=== PATIENT | male | born 1960 | race Caucasian/White ===

== ENCOUNTER 2018-04-10 22:17 | Inpatient (IN) | payer MEDICARE, MEDICAID ==
--- NOTE | 2018-04-10 23:48 | ED Physician Chart ---
ED Chief Complaint/HPI - Patient Information Date Seen:: 04/10/18 Time Seen:: 22:00 Chief Complaint:: psychosis History of Present Illness:: 58 yr old male from skilled nursing for geropsych evualuation Allergies:: Allergies Allergy/AdvReac Type Severity Reaction Status Date / Time No Known Allergies Allergy Verified 04/10/18 23:15 Vitals:: Vital Signs - 8 hr 04/10/18 23:15 Temp 98.1 F HR 58 RR 18 BP 109/60 O2 Sat % 98 Historian:: Medical Records ED Review of Systems - Review of Systems General/Constitutional: No fever, No chills, No weight loss, No weakness, No diaphoresis, No edema, No loss of appetite Skin: No skin lesions, No rash, No bruising Head: No headache, No light-headedness Eyes: No loss of vision, No pain, No diplopia ENT: No earache, No nasal drainage, No sore throat, No tinnitus Neck: No neck pain, No swelling, No thyromegaly, No stiffness, No mass noted Cardio Vascular: No chest pain, No palpitations, No PND, No orthopnea, No edema Pulmonary: No SOB, No cough, No sputum, No wheezing GI: No nausea, No vomiting, No diarrhea, No pain, No melena, No hematochezia, No constipation, No hematemesis G/U: No dysuria, No frequency, No hematuria Musculoskeletal: No bone or joint pain, No back pain, No muscle pain Endocrine: No polyuria, No polydipsia Psychiatric: No prior psych history, No depression, No anxiety, No suicidal ideation Hematopoietic: No bruising, No lymphadenopathy Allergic/Immuno: No urticaria, No angioedema Neurological: No syncope, No focal symptoms, No weakness, No paresthesia, No headache, No seizure, No dizziness, No confusion, No vertigo ED Past Medical History - Past Medical History Past Medical History: Other (psych disorder) Family Medical History - Family Member Mother History Unknown: Yes ED Physical Exam - Physical Examination General/Constitutional: Awake, Well-developed, well-nourished, Alert, No distress, GCS 15, Non-toxic appearing, Ambulatory Head: Atraumatic Eyes: Lids, conjuctiva normal, PERRL, EOMI Skin: Nl inspection, No rash, No skin lesions, No ecchymosis, Well hydrated, No lymphadenopathy ENMT: External ears, nose nl, Nasal exam nl, Lips, teeth, gums nl Neck: Nontender, Full ROM w/o pain, No JVD, No nuchal rigidity, No bruit, No mass, No stridor Respiratory: Nl effort/Exclusion, Clear to Auscultation, No Wheeze/Rhonchi/Rales Cardio Vascular: RRR, No murmur, gallop, rubs, NL S1 S2 GI: No tenderness/rebounding/guarding, No organomegaly, No hernia, Normal BS's, Nondistended, No mass/bruits, No McBurney tenderness : No CVA tenderness Extremities: No tenderness or effusion, Full ROM, normal strength in all extremities, No edema, Normal digits & nails Neuro/Psych: Alert/oriented, DTR's symmetric, Normal sensory exam, Normal motor strength, Judgement/insight normal, Mood normal, Normal gait, No focal deficits Misc: Normal back, No paraspinal tenderness ED Assessment - Assessment General Assessment: psychosis for eval ED Septic Shock - . Is Septic Shock (SBP<90, OR Lactate>4 mmol\L) present?: No - <6hrs of presentation: Vital Signs: Vital Signs - 8 hr 04/10/18 23:15 Temp 98.1 F HR 58 RR 18 BP 109/60 O2 Sat % 98 ED Reassessment (Disposition) - Reassessment Reassessment Condition:: Unchanged - Diagnosis Diagnosis:: psychosis - Patient Disposition Discharge/Transfer:: Acute Care w/in this hosp
[2018-04-11 00:02] LABS: URINE MICROSCOPIC INDICATED? YES; URINE SOURCE CLEAN C
[2018-04-11 00:07] LABS: % EOSINOPHILS 1.9 % (0.0-5.0); % LYMPHOCYTES 42.9 % (20.0-50.0); % MONOCYTES 10.8 % (2.0-10.0); % NEUTROPHILS 43.4 % (40.0-80.0); BASOPHILE ABSOLUTE 0.1 Th/cumm (0-0.2); EOSINOPHILE ABSOLUTE 0.1 Th/cmm (0.1-0.4); HEMOGLOBIN 11.4 gm/dL (12-16); LYMPHOCYTE ABSOLUTE 2.8 Th/cmm (1.5-3.0); MEAN CELL VOLUME 89.4 fl (80-99); MEAN CORPUSCULAR HEMOGLOBIN 29.9 pg (26.0-30.0); MEAN CORPUSCULAR HGB CONC 33.5 pg (28.0-36.0); MONOCYTE ABSOLUTE 0.7 Th/cmm (0.3-1.0); NEUTROPHILE ABSOLUTE 2.8 Th/cmm (1.8-8.0); PLATELET COUNT 371 Th/cmm (150-400); RED CELL DISTRIBUTION WIDTH 14.7 % (11.5-20.0); WHITE BLOOD COUNT 6.5 Th/cmm (4.8-10.8)
[2018-04-11 00:19] LABS: URINE BILIRUBIN NEGATIVE (NEGATIVE); URINE BLOOD TRACE (NEGATIVE); URINE GLUCOSE (UA) NEGATIVE (NEGATIVE); URINE KETONE NEGATIVE (NEGATIVE); URINE LEUKOCYTE ESTERASE NEGATIVE (NEGATIVE); URINE NITRATE NEGATIVE (NEGATIVE); URINE PROTEIN NEGATIVE (NEGATIVE); URINE UROBILINOGEN 0.2 E.U./dL (0.2 - 1.0)
[2018-04-11 00:20] LABS: URINE CLARITY CLEAR (CLEAR)
[2018-04-11 00:21] LABS: URINE BACTERIA OCCASIONAL /hpf (NONE SEEN); URINE COLOR OTHER; URINE EPITHELIAL CELLS OCCASIONAL /lpf (FEW); URINE RBC 0-2 /hpf (0-5); URINE WBC 0-2 /hpf (0-5)
[2018-04-11 00:43] LABS: ALB/GLOB RATIO 1.6 (1.0-1.8); ALBUMIN 3.8 gm/dL (4.2-5.5); ALKALINE PHOSPHATASE 72 U/L (34-104); ANION GAP 8.9 (7.0-16.0); BILIRUBIN,TOTAL 0.2 mg/dL (0.3-1.0); BUN - UREA NITROGEN 11 mg/dL (7-25); CALCIUM SERUM 9.2 mg/dL (8.6-10.3); CARBON DIOXIDE 26.6 mEq/L (21.0-31.0); CHLORIDE 100 mEq/L (98-107); CREATININE - SERUM 0.8 mg/dL (0.7-1.3); GFR AFRICAN-AMERICAN > 60.0 ml/min (>90); GFR NON AFRICAN-AMERICAN > 60.0 ml/min; GLUCOSE 94 mg/dL (70-105); POTASSIUM SERUM 3.5 mEq/L (3.5-5.1); SGOT 14 U/L (13-39); SGPT/ALT 11 U/L (7-52); SODIUM SERUM 132 mEq/L (136-145); TOTAL PROTEIN,SERUM 6.2 gm/dL (6.0-8.3)
[2018-04-11 02:11] VITALS: BP 95/51
[2018-04-11] MEDS ORDERED: Magnesium Hydroxide (MOM) 30 mL UDC PO PRN ×2 (02:14→21:38)
[2018-04-11] MEDS ORDERED: Maalox 30 mL Cup PO PRN ×2 (02:14→21:38)
[2018-04-11] MEDS ORDERED: GALANTAMINE HBR 8 MG PO SCH (09:00)
[2018-04-11] MEDS ORDERED: FLUPHENAZINE HCL 5 MG PO SCH (09:00)
[2018-04-11] MEDS: Multivitamin Tab PO SCH (09:26)
[2018-04-11] MEDS ORDERED: Non-Formulary Item 1 EA (Melatonin [Melatonin] 3 MG) PO SCH (21:00)
--- NOTE | 2018-04-11 23:39 | History & Physical ---
ADMIT DATE: 04/11/2018 HISTORY OF PRESENT ILLNESS: The patient is a 58-year-old male with long history of psychosis, admitted to [facility] under Dr. Fischer's service for evaluation and treatment. The patient denies any chest pain, shortness of breath, nausea, vomiting, fever or chills. PAST MEDICAL HISTORY: Significant for psychosis. PAST SURGICAL HISTORY: No recent surgery. ALLERGIES: None. MEDICATIONS: Follow admission reconciliation. SOCIAL HISTORY: No smoking, alcohol or drugs. FAMILY HISTORY: Noncontributory. REVIEW OF SYSTEMS: RENAL SYSTEM: No history of chronic renal disorder. CARDIOVASCULAR SYSTEM: No coronary artery disease. ENDOCRINE SYSTEM: No diabetes or thyroid problem. GASTROINTESTINAL SYSTEM: No upper or lower gastrointestinal bleed. NEUROLOGICAL SYSTEM: No seizure disorder. MUSCULOSKELETAL SYSTEM: No muscular dystrophy. HEMATOLOGICAL SYSTEM: No bleeding tendency. RESPIRATORY SYSTEM: No asthma. GENITOURINARY: No hematuria. PHYSICAL EXAMINATION: GENERAL: He is awake, alert, mildly confused. VITAL SIGNS: Temperature 98.1, heart rate 67, blood pressure 129/73. HEENT: Normocephalic. Pupils reacting equal to light and accommodation. Sclerae clear. NECK: Supple. Negative for lymphadenopathy, JVD or bruit. CHEST: Bilaterally normal. No rhonchi or wheezing. HEART: S1, S2 normal. No murmur or gallop rhythm. ABDOMEN: Soft, bowel sounds positive. EXTREMITIES: No edema. NEUROLOGIC: He is awake, alert, mildly confused. LABORATORY DATA: White blood cells 6.5, hemoglobin 11.4, hematocrit 34.0, platelet 371. Sodium 132, potassium 3.5, BUN 11, creatinine 0.8. ASSESSMENT: 1. Anemia. 2. Hyponatremia. 3. Constipation. 4. Psychosis. PLAN: The patient admitted to the hospital under Dr. Fischer's service. Medical problem to address during hospitalization is psychosis. Medical problem to address at discharge is mild anemia. The patient is medically stable for activity. Thank you Dr. Fischer for asking me to see your patient. JOB# [id number]
[2018-04-12] MEDS: Multivitamin Tab PO SCH (08:41)
--- NOTE | 2018-04-12 12:19 | Psychosocial Evaluation ---
DATE OF SERVICE: 04/11/2018 JUSTIFICATION FOR HOSPITALIZATION: The patient is currently in the hospital, states that he has been having thoughts of "passing away." CHIEF COMPLAINT: "I have been having thoughts of passing away." HISTORY OF PRESENT ILLNESS: A -[id number] male attesting to depression, thoughts of "passing away," apparently coming in from [place], more agitation and hallucinating, talking to himself, not making any sense. On exam, he is pretty disoriented, does not know why he is here other than the above-mentioned. Okay sleep. Okay appetite. Later during the interview telling me "I am not depressed, I feel fine, I want to go home." He is pretty confused on exam, poor historian. PAST PSYCHIATRIC ADMISSION: He states he has been to [facility] before. FAMILY HISTORY: Denies. SOCIAL HISTORY: States he was born in [place], not , no kids. Denies any drugs. No alcohol or tobacco. States he lives in an apartment alone, but in fact lives at [facility]. MEDICATIONS: Noted. MEDICAL HISTORY: Please see full H and P. MENTAL STATUS EXAMINATION: Stated age. Fair eye contact. Rambling speech. Mildly pressured speech. Psychomotorically accelerated. Restless. Mood "fine." Affect flat. Thought processes are disorganized. No overt SI or HI at this time, but he is alluding to thoughts of "passing away." The patient appearing psychotic, mumbling to self. Insight and judgment diminished. He does not know where he is or what is going on. PROVISIONAL DIAGNOSIS: Likely schizophrenia. Medical: Please see full H and P. ESTIMATED LENGTH OF STAY: 5-7 days. ASSESSMENT: The patient requiring hospitalization, bizarre behaviors, aggressive behaviors, psychotic behaviors. PLAN: Continue fluphenazine with plans to titrate. TREATMENT PLAN: Includes group as well as milieu therapy. CONDITIONS FOR DISCHARGE: Improved mood, improved affect, cessation of any SI, better coping, better control of his psychotic symptoms. JOB# [id number]
--- NOTE | 2018-04-12 20:31 | Internal Medicine Prog Note ---
Internal Medicine Subjective - Subjective Service Date: 04/12/18 Patient seen and examined:: with staff Patient is:: awake, verbal, confused Per staff patient has:: no adverse event Internal Medicine Objective - Results Result Diagrams: 04/10/18 23:55 04/10/18 23:55 Recent Labs: Laboratory Last Values WBC 6.5 Th/cmm (4.8-10.8) 04/10/18 23:55 RBC 3.80 Mil/cmm (4.30-5.70) L 04/10/18 23:55 Hgb 11.4 gm/dL (12-16) L 04/10/18 23:55 Hct 34.0 % (41.0-60) L 04/10/18 23:55 MCV 89.4 fl (80-99) 04/10/18 23:55 MCH 29.9 pg (26.0-30.0) 04/10/18 23:55 MCHC Differential 33.5 pg (28.0-36.0) 04/10/18 23:55 RDW 14.7 % (11.5-20.0) 04/10/18 23:55 Plt Count 371 Th/cmm (150-400) 04/10/18 23:55 MPV 6.0 fl 04/10/18 23:55 Neutrophils % 43.4 % (40.0-80.0) 04/10/18 23:55 Lymphocytes % 42.9 % (20.0-50.0) 04/10/18 23:55 Monocytes % 10.8 % (2.0-10.0) H 04/10/18 23:55 Eosinophils % 1.9 % (0.0-5.0) 04/10/18 23:55 Basophils % 1.0 % (0.0-2.0) 04/10/18 23:55 Sodium 132 mEq/L (136-145) L 04/10/18 23:55 Potassium 3.5 mEq/L (3.5-5.1) 04/10/18 23:55 Chloride 100 mEq/L (98-107) 04/10/18 23:55 Carbon Dioxide 26.6 mEq/L (21.0-31.0) 04/10/18 23:55 Anion Gap 8.9 (7.0-16.0) 04/10/18 23:55 BUN 11 mg/dL (7-25) 04/10/18 23:55 Creatinine 0.8 mg/dL (0.7-1.3) 07 23:55 Est GFR ( Amer) > 60.0 ml/min (>90) 04/10/18 23:55 Est GFR (Non-Af Amer) > 60.0 ml/min 04/10/18 23:55 BUN/Creatinine Ratio 13.8 04/10/18 23:55 Glucose 94 mg/dL (70-105) 04/10/18 23:55 Calcium 9.2 mg/dL (8.6-10.3) 04/10/18 23:55 Total Bilirubin 0.2 mg/dL (0.3-1.0) L 04/10/18 23:55 AST 14 U/L (13-39) 04/10/18 23:55 ALT 11 U/L (7-52) 04/10/18 23:55 Alkaline Phosphatase 72 U/L (34-104) 04/10/18 23:55 Total Protein 6.2 gm/dL (6.0-8.3) 04/10/18 23:55 Albumin 3.8 gm/dL (4.2-5.5) L 04/10/18 23:55 Globulin 2.4 gm/dL 04/10/18 23:55 Albumin/Globulin Ratio 1.6 (1.0-1.8) 04/10/18 23:55 Urine Source CLEAN C 04/10/18 23:45 Urine Color OTHER 04/10/18 23:45 Urine Clarity CLEAR (CLEAR) 04/10/18 23:45 Urine pH 7.0 (4.6 - 8.0) 04/10/18 23:45 Ur Specific [place] <= 1.005 (1.005-1.030) 04/10/18 23:45 Urine Protein NEGATIVE mg/dL (NEGATIVE) 04/10/18 23:45 Urine Glucose (UA) NEGATIVE mg/dL (NEGATIVE) 04/10/18 23:45 Urine Ketones NEGATIVE mg/dL (NEGATIVE) 04/10/18 23:45 Urine Blood TRACE (NEGATIVE) 04/10/18 23:45 Urine Nitrate NEGATIVE (NEGATIVE) 04/10/18 23:45 Urine Bilirubin NEGATIVE (NEGATIVE) 04/10/18 23:45 Urine Urobilinogen 0.2 E.U./dL (0.2 - 1.0) 04/10/18 23:45 Ur Leukocyte Esterase NEGATIVE (NEGATIVE) 04/10/18 23:45 Urine RBC 0-2 /hpf (0-5) H 04/10/18 23:45 Urine WBC 0-2 /hpf (0-5) 04/10/18 23:45 Ur Epithelial Cells OCCASIONAL /lpf (FEW) 04/10/18 23:45 Urine Bacteria OCCASIONAL /hpf (NONE SEEN) 04/10/18 23:45 - Physical Exam Vitals and I&O: Vital Signs Temp 98.6 F 04/12/18 15:45 Pulse 84 04/12/18 15:45 Resp 17 04/12/18 15:45 BP 126/68 04/12/18 15:45 Pulse Ox 98 04/12/18 15:45 Intake & Output 04/12/18 04/12/18 04/13/18 06:59 18:59 06:59 Intake Total 120 Balance 120 Intake: Oral 120 Other: # Voids 3 # Bowel Movements 0 Active Medications: Current Medications Acetaminophen (Tylenol) 650 mg PO Q4HR PRN PRN Reason: Mild Pain / Temp above 100 Stop: 06/10/18 02:13 Al Hydrox/Mg Hydrox/Simethicone (Maalox) 30 ml PO Q4HR PRN PRN Reason: GI DISTRESS Stop: 06/10/18 02:13 Fluphenazine HCl (Prolixin) 5 mg PO Q12HR [facility] Stop: 06/10/18 08:59 Last Admin: 04/12/18 08:41 Dose: 5 mg Galantamine Hydrobromide (Razadyne) 8 mg PO Q12HR [facility] Stop: 06/10/18 08:59 Last Admin: 04/12/18 08:41 Dose: 8 mg Lorazepam (Ativan) 0.5 mg PO Q4HR PRN; Protocol PRN Reason: Anxiety/agitation Stop: 05/11/18 02:13 Magnesium Hydroxide (Milk Of Magnesia) 30 ml PO Q8HR PRN PRN Reason: Constipation Stop: 06/10/18 21:37 Multivitamins/Vitamin C (Theragran) 1 tab PO DAILY [facility] Stop: 06/10/18 08:59 Last Admin: 04/12/18 08:41 Dose: 1 tab Sodium Chloride (Nacl Tab) 1 gm PO BID [facility] Stop: 06/10/18 08:59 Last Admin: 04/12/18 16:07 Dose: 1 gm Zolpidem Tartrate (Ambien) 5 mg PO HS PRN PRN Reason: Insomnia Stop: 06/10/18 02:13 Last Admin: 04/11/18 20:19 Dose: 5 mg General: alert HEENT: NC/AT, PERRLA, EOMI, anicteric sclerae, throat clear Neck: Supple, No JVD, No thyromegaly, +2 carotid pulse wo bruit Cardiovascular: RRR, Normal S1, Normal S2, without murmur Abdomen: soft, non-tender, non-distended Extremities: clear Neurological: no change Internal Medicine Assmt/Plan - Assessment Assessment: 1.ANEMIA. 2.HYPONATREMIA. 3.CONSTIPATION. 4.PSYCHOSIS - Plan Plan: CONTINUE ON CURRERNT MEDICATION AND DIET.
[2018-04-13] MEDS: Multivitamin Tab PO SCH (09:26)
--- NOTE | 2018-04-13 17:40 | Progress Notes ---
DATE: 04/12/2018 SUBJECTIVE: Chart reviewed and the patient interviewed. Also discussed the patient's condition with the staff and reviewed records and labs. The patient is easily agitated and restless. The patient is pacing up and down the unit in angry and in irritable mood and have difficulty following directions. The patient also is rambling. The patient is interrupting me during my interview and during asking questions and kept going back and forth and restless. ASSESSMENT: The patient is still psychotic and agitated. TREATMENT PLAN: Continue to monitor his behavior and his condition closely. Also, continue to work on his irritability and his agitation and continue to follow up. JOB# [id number]
--- NOTE | 2018-04-13 23:17 | Internal Medicine Prog Note ---
Internal Medicine Subjective - Subjective Service Date: 04/13/18 Patient seen and examined:: with staff Patient is:: awake, verbal, confused Per staff patient has:: no adverse event Internal Medicine Objective - Results Result Diagrams: 04/10/18 23:55 04/10/18 23:55 Recent Labs: Laboratory Last Values WBC 6.5 Th/cmm (4.8-10.8) 04/10/18 23:55 RBC 3.80 Mil/cmm (4.30-5.70) L 04/10/18 23:55 Hgb 11.4 gm/dL (12-16) L 04/10/18 23:55 Hct 34.0 % (41.0-60) L 04/10/18 23:55 MCV 89.4 fl (80-99) 04/10/18 23:55 MCH 29.9 pg (26.0-30.0) 04/10/18 23:55 MCHC Differential 33.5 pg (28.0-36.0) 04/10/18 23:55 RDW 14.7 % (11.5-20.0) 04/10/18 23:55 Plt Count 371 Th/cmm (150-400) 04/10/18 23:55 MPV 6.0 fl 04/10/18 23:55 Neutrophils % 43.4 % (40.0-80.0) 04/10/18 23:55 Lymphocytes % 42.9 % (20.0-50.0) 04/10/18 23:55 Monocytes % 10.8 % (2.0-10.0) H 04/10/18 23:55 Eosinophils % 1.9 % (0.0-5.0) 04/10/18 23:55 Basophils % 1.0 % (0.0-2.0) 04/10/18 23:55 Sodium 132 mEq/L (136-145) L 04/10/18 23:55 Potassium 3.5 mEq/L (3.5-5.1) 04/10/18 23:55 Chloride 100 mEq/L (98-107) 04/10/18 23:55 Carbon Dioxide 26.6 mEq/L (21.0-31.0) 04/10/18 23:55 Anion Gap 8.9 (7.0-16.0) 04/10/18 23:55 BUN 11 mg/dL (7-25) 04/10/18 23:55 Creatinine 0.8 mg/dL (0.7-1.3) 07 23:55 Est GFR ( Amer) > 60.0 ml/min (>90) 04/10/18 23:55 Est GFR (Non-Af Amer) > 60.0 ml/min 04/10/18 23:55 BUN/Creatinine Ratio 13.8 04/10/18 23:55 Glucose 94 mg/dL (70-105) 04/10/18 23:55 Calcium 9.2 mg/dL (8.6-10.3) 04/10/18 23:55 Total Bilirubin 0.2 mg/dL (0.3-1.0) L 04/10/18 23:55 AST 14 U/L (13-39) 04/10/18 23:55 ALT 11 U/L (7-52) 04/10/18 23:55 Alkaline Phosphatase 72 U/L (34-104) 04/10/18 23:55 Total Protein 6.2 gm/dL (6.0-8.3) 04/10/18 23:55 Albumin 3.8 gm/dL (4.2-5.5) L 04/10/18 23:55 Globulin 2.4 gm/dL 04/10/18 23:55 Albumin/Globulin Ratio 1.6 (1.0-1.8) 04/10/18 23:55 Urine Source CLEAN C 04/10/18 23:45 Urine Color OTHER 04/10/18 23:45 Urine Clarity CLEAR (CLEAR) 04/10/18 23:45 Urine pH 7.0 (4.6 - 8.0) 04/10/18 23:45 Ur Specific [place] <= 1.005 (1.005-1.030) 04/10/18 23:45 Urine Protein NEGATIVE mg/dL (NEGATIVE) 04/10/18 23:45 Urine Glucose (UA) NEGATIVE mg/dL (NEGATIVE) 04/10/18 23:45 Urine Ketones NEGATIVE mg/dL (NEGATIVE) 04/10/18 23:45 Urine Blood TRACE (NEGATIVE) 04/10/18 23:45 Urine Nitrate NEGATIVE (NEGATIVE) 04/10/18 23:45 Urine Bilirubin NEGATIVE (NEGATIVE) 04/10/18 23:45 Urine Urobilinogen 0.2 E.U./dL (0.2 - 1.0) 04/10/18 23:45 Ur Leukocyte Esterase NEGATIVE (NEGATIVE) 04/10/18 23:45 Urine RBC 0-2 /hpf (0-5) H 04/10/18 23:45 Urine WBC 0-2 /hpf (0-5) 04/10/18 23:45 Ur Epithelial Cells OCCASIONAL /lpf (FEW) 04/10/18 23:45 Urine Bacteria OCCASIONAL /hpf (NONE SEEN) 04/10/18 23:45 - Physical Exam Vitals and I&O: Vital Signs Temp 96.9 F 04/13/18 21:34 Pulse 71 04/13/18 21:34 Resp 20 04/13/18 21:34 BP 100/61 04/13/18 21:34 Pulse Ox 99 04/13/18 21:34 Intake & Output 04/13/18 04/13/18 04/14/18 06:59 18:59 06:59 Intake Total 500 500 Balance 500 500 Intake: Oral 500 500 Other: # Voids 3 3 # Bowel Movements 0 0 Active Medications: Current Medications Acetaminophen (Tylenol) 650 mg PO Q4HR PRN PRN Reason: Mild Pain / Temp above 100 Stop: 06/10/18 02:13 Al Hydrox/Mg Hydrox/Simethicone (Maalox) 30 ml PO Q4HR PRN PRN Reason: GI DISTRESS Stop: 06/10/18 02:13 Fluphenazine HCl (Prolixin) 5 mg PO Q12HR [facility] Stop: 06/10/18 08:59 Last Admin: 04/13/18 20:54 Dose: 5 mg Galantamine Hydrobromide (Razadyne) 8 mg PO Q12HR [facility] Stop: 06/10/18 08:59 Last Admin: 04/13/18 20:05 Dose: 8 mg Lorazepam (Ativan) 0.5 mg PO Q4HR PRN; Protocol PRN Reason: Anxiety/agitation Stop: 05/11/18 02:13 Magnesium Hydroxide (Milk Of Magnesia) 30 ml PO Q8HR PRN PRN Reason: Constipation Stop: 06/10/18 21:37 Multivitamins/Vitamin C (Theragran) 1 tab PO DAILY [facility] Stop: 06/10/18 08:59 Last Admin: 04/13/18 09:26 Dose: 1 tab Sodium Chloride (Nacl Tab) 1 gm PO BID [facility] Stop: 06/10/18 08:59 Last Admin: 04/13/18 16:55 Dose: 1 gm Zolpidem Tartrate (Ambien) 5 mg PO HS PRN PRN Reason: Insomnia Stop: 06/10/18 02:13 Last Admin: 04/13/18 20:54 Dose: 5 mg General: alert HEENT: NC/AT, PERRLA, EOMI, anicteric sclerae, throat clear Neck: Supple, No JVD, No thyromegaly, +2 carotid pulse wo bruit Cardiovascular: RRR, Normal S1, Normal S2, without murmur Abdomen: soft, non-tender, non-distended Extremities: clear Neurological: no change Internal Medicine Assmt/Plan - Assessment Assessment: 1.ANEMIA. 2.HYPONATREMIA. 3.CONSTIPATION. 4.PSYCHOSIS - Plan Plan: CONTINUE ON CURRERNT MEDICATION AND DIET.
--- NOTE | 2018-04-14 01:42 | Progress Notes ---
DATE: 04/13/2018 SUBJECTIVE: Chart reviewed and the patient interviewed. Also, discussed the patient's condition with the staff and reviewed records and labs. The patient is still isolative and withdrawn. The patient also is still guarded. Also, still wants to be left alone. The patient is compliant with taking his medications with no side effects of medications. ASSESSMENT: The patient is still depressed and is still withdrawn. TREATMENT PLAN: Continue to monitor his behavior and his condition closely. Also, continue to work on his ineffective coping and continue to follow up. JOB# [id number]
[2018-04-14] MEDS: Multivitamin Tab PO SCH (08:44)
--- NOTE | 2018-04-14 19:08 | Internal Medicine Prog Note ---
Internal Medicine Subjective - Subjective Service Date: 04/14/18 Patient seen and examined:: with staff Patient is:: awake, verbal, confused Per staff patient has:: no adverse event Internal Medicine Objective - Results Result Diagrams: 04/10/18 23:55 04/10/18 23:55 Recent Labs: Laboratory Last Values WBC 6.5 Th/cmm (4.8-10.8) 04/10/18 23:55 RBC 3.80 Mil/cmm (4.30-5.70) L 04/10/18 23:55 Hgb 11.4 gm/dL (12-16) L 04/10/18 23:55 Hct 34.0 % (41.0-60) L 04/10/18 23:55 MCV 89.4 fl (80-99) 04/10/18 23:55 MCH 29.9 pg (26.0-30.0) 04/10/18 23:55 MCHC Differential 33.5 pg (28.0-36.0) 04/10/18 23:55 RDW 14.7 % (11.5-20.0) 04/10/18 23:55 Plt Count 371 Th/cmm (150-400) 04/10/18 23:55 MPV 6.0 fl 04/10/18 23:55 Neutrophils % 43.4 % (40.0-80.0) 04/10/18 23:55 Lymphocytes % 42.9 % (20.0-50.0) 04/10/18 23:55 Monocytes % 10.8 % (2.0-10.0) H 04/10/18 23:55 Eosinophils % 1.9 % (0.0-5.0) 04/10/18 23:55 Basophils % 1.0 % (0.0-2.0) 04/10/18 23:55 Sodium 132 mEq/L (136-145) L 04/10/18 23:55 Potassium 3.5 mEq/L (3.5-5.1) 04/10/18 23:55 Chloride 100 mEq/L (98-107) 04/10/18 23:55 Carbon Dioxide 26.6 mEq/L (21.0-31.0) 04/10/18 23:55 Anion Gap 8.9 (7.0-16.0) 04/10/18 23:55 BUN 11 mg/dL (7-25) 04/10/18 23:55 Creatinine 0.8 mg/dL (0.7-1.3) 07 23:55 Est GFR ( Amer) > 60.0 ml/min (>90) 04/10/18 23:55 Est GFR (Non-Af Amer) > 60.0 ml/min 04/10/18 23:55 BUN/Creatinine Ratio 13.8 04/10/18 23:55 Glucose 94 mg/dL (70-105) 04/10/18 23:55 Calcium 9.2 mg/dL (8.6-10.3) 04/10/18 23:55 Total Bilirubin 0.2 mg/dL (0.3-1.0) L 04/10/18 23:55 AST 14 U/L (13-39) 04/10/18 23:55 ALT 11 U/L (7-52) 04/10/18 23:55 Alkaline Phosphatase 72 U/L (34-104) 04/10/18 23:55 Total Protein 6.2 gm/dL (6.0-8.3) 04/10/18 23:55 Albumin 3.8 gm/dL (4.2-5.5) L 04/10/18 23:55 Globulin 2.4 gm/dL 04/10/18 23:55 Albumin/Globulin Ratio 1.6 (1.0-1.8) 04/10/18 23:55 Urine Source CLEAN C 04/10/18 23:45 Urine Color OTHER 04/10/18 23:45 Urine Clarity CLEAR (CLEAR) 04/10/18 23:45 Urine pH 7.0 (4.6 - 8.0) 04/10/18 23:45 Ur Specific [place] <= 1.005 (1.005-1.030) 04/10/18 23:45 Urine Protein NEGATIVE mg/dL (NEGATIVE) 04/10/18 23:45 Urine Glucose (UA) NEGATIVE mg/dL (NEGATIVE) 04/10/18 23:45 Urine Ketones NEGATIVE mg/dL (NEGATIVE) 04/10/18 23:45 Urine Blood TRACE (NEGATIVE) 04/10/18 23:45 Urine Nitrate NEGATIVE (NEGATIVE) 04/10/18 23:45 Urine Bilirubin NEGATIVE (NEGATIVE) 04/10/18 23:45 Urine Urobilinogen 0.2 E.U./dL (0.2 - 1.0) 04/10/18 23:45 Ur Leukocyte Esterase NEGATIVE (NEGATIVE) 04/10/18 23:45 Urine RBC 0-2 /hpf (0-5) H 04/10/18 23:45 Urine WBC 0-2 /hpf (0-5) 04/10/18 23:45 Ur Epithelial Cells OCCASIONAL /lpf (FEW) 04/10/18 23:45 Urine Bacteria OCCASIONAL /hpf (NONE SEEN) 04/10/18 23:45 - Physical Exam Vitals and I&O: Vital Signs Temp 97.6 F 04/14/18 14:00 Pulse 77 04/14/18 14:00 Resp 20 04/14/18 14:00 BP 103/60 04/14/18 14:00 Pulse Ox 100 04/14/18 14:00 Intake & Output 04/14/18 04/14/18 04/15/18 06:59 18:59 06:59 Intake Total 500 Balance 500 Intake: Oral 500 Other: # Voids 3 # Bowel Movements 0 Active Medications: Current Medications Acetaminophen (Tylenol) 650 mg PO Q4HR PRN PRN Reason: Mild Pain / Temp above 100 Stop: 06/10/18 02:13 Al Hydrox/Mg Hydrox/Simethicone (Maalox) 30 ml PO Q4HR PRN PRN Reason: GI DISTRESS Stop: 06/10/18 02:13 Fluphenazine HCl (Prolixin) 5 mg PO Q12HR [facility] Stop: 06/10/18 08:59 Last Admin: 04/14/18 08:44 Dose: 5 mg Galantamine Hydrobromide (Razadyne) 8 mg PO Q12HR [facility] Stop: 06/10/18 08:59 Last Admin: 04/14/18 08:44 Dose: 8 mg Lorazepam (Ativan) 0.5 mg PO Q4HR PRN; Protocol PRN Reason: Anxiety/agitation Stop: 05/11/18 02:13 Magnesium Hydroxide (Milk Of Magnesia) 30 ml PO Q8HR PRN PRN Reason: Constipation Stop: 06/10/18 21:37 Multivitamins/Vitamin C (Theragran) 1 tab PO DAILY [facility] Stop: 06/10/18 08:59 Last Admin: 04/14/18 08:44 Dose: 1 tab Sodium Chloride (Nacl Tab) 1 gm PO BID [facility] Stop: 06/10/18 08:59 Last Admin: 04/14/18 17:14 Dose: 1 gm Zolpidem Tartrate (Ambien) 5 mg PO HS PRN PRN Reason: Insomnia Stop: 06/10/18 02:13 Last Admin: 04/13/18 20:54 Dose: 5 mg General: alert HEENT: NC/AT, PERRLA, EOMI, anicteric sclerae, throat clear Neck: Supple, No JVD, No thyromegaly, +2 carotid pulse wo bruit Cardiovascular: RRR, Normal S1, Normal S2, without murmur Abdomen: soft, non-tender, non-distended Extremities: clear Neurological: no change Internal Medicine Assmt/Plan - Assessment Assessment: 1.ANEMIA. 2.HYPONATREMIA. 3.CONSTIPATION. 4.PSYCHOSIS - Plan Plan: CONTINUE ON CURRERNT MEDICATION AND DIET.
[2018-04-15] MEDS: Multivitamin Tab PO SCH (09:39)
--- NOTE | 2018-04-15 11:41 | Progress Notes ---
DATE: SUBJECTIVE: Chart reviewed and the patient interviewed. Also discussed the patient's condition with the staff and reviewed records and labs. The patient is still depressed and is still withdrawn. The patient also is still guarded, and he does not want to talk about himself or his feelings. The patient also wants to be left alone. Otherwise, the patient is cooperative and compliant with taking his medications with no side effect of medications. ASSESSMENT: The patient is still depressed. TREATMENT PLAN: Continue monitoring his behavior and his condition closely. Also, continue adjusting psychotropic medications and followup. JOB# [id number]
--- NOTE | 2018-04-15 20:18 | Progress Notes ---
DATE: 04/15/2018 SUBJECTIVE: Chart reviewed and the patient interviewed. Also discussed the patient's condition with the staff and reviewed the records and labs. The patient is still isolated and withdrawn at times and other times pacing up and down. The patient is guarded and he is not talking much about himself or his feelings. He also is interacting minimally. The patient also is suspicious and he is slightly paranoid. Otherwise, the patient is more compliant with taking his medications with no side effects of medications. ASSESSMENT: He is still agitated and has unpredictable behavior. TREATMENT PLAN: Continue to work on his impulsivity and his being guarded. Also, continue adjusting psychotropic medications and followup. JOB# [id number]
--- NOTE | 2018-04-15 20:33 | Internal Medicine Prog Note ---
Internal Medicine Subjective - Subjective Service Date: 04/15/18 Patient seen and examined:: with staff Patient is:: awake, verbal, confused Per staff patient has:: no adverse event Internal Medicine Objective - Results Result Diagrams: 04/10/18 23:55 04/10/18 23:55 Recent Labs: Laboratory Last Values WBC 6.5 Th/cmm (4.8-10.8) 04/10/18 23:55 RBC 3.80 Mil/cmm (4.30-5.70) L 04/10/18 23:55 Hgb 11.4 gm/dL (12-16) L 04/10/18 23:55 Hct 34.0 % (41.0-60) L 04/10/18 23:55 MCV 89.4 fl (80-99) 04/10/18 23:55 MCH 29.9 pg (26.0-30.0) 04/10/18 23:55 MCHC Differential 33.5 pg (28.0-36.0) 04/10/18 23:55 RDW 14.7 % (11.5-20.0) 04/10/18 23:55 Plt Count 371 Th/cmm (150-400) 04/10/18 23:55 MPV 6.0 fl 04/10/18 23:55 Neutrophils % 43.4 % (40.0-80.0) 04/10/18 23:55 Lymphocytes % 42.9 % (20.0-50.0) 04/10/18 23:55 Monocytes % 10.8 % (2.0-10.0) H 04/10/18 23:55 Eosinophils % 1.9 % (0.0-5.0) 04/10/18 23:55 Basophils % 1.0 % (0.0-2.0) 04/10/18 23:55 Sodium 132 mEq/L (136-145) L 04/10/18 23:55 Potassium 3.5 mEq/L (3.5-5.1) 04/10/18 23:55 Chloride 100 mEq/L (98-107) 04/10/18 23:55 Carbon Dioxide 26.6 mEq/L (21.0-31.0) 04/10/18 23:55 Anion Gap 8.9 (7.0-16.0) 04/10/18 23:55 BUN 11 mg/dL (7-25) 04/10/18 23:55 Creatinine 0.8 mg/dL (0.7-1.3) 07 23:55 Est GFR ( Amer) > 60.0 ml/min (>90) 04/10/18 23:55 Est GFR (Non-Af Amer) > 60.0 ml/min 04/10/18 23:55 BUN/Creatinine Ratio 13.8 04/10/18 23:55 Glucose 94 mg/dL (70-105) 04/10/18 23:55 Calcium 9.2 mg/dL (8.6-10.3) 04/10/18 23:55 Total Bilirubin 0.2 mg/dL (0.3-1.0) L 04/10/18 23:55 AST 14 U/L (13-39) 04/10/18 23:55 ALT 11 U/L (7-52) 04/10/18 23:55 Alkaline Phosphatase 72 U/L (34-104) 04/10/18 23:55 Total Protein 6.2 gm/dL (6.0-8.3) 04/10/18 23:55 Albumin 3.8 gm/dL (4.2-5.5) L 04/10/18 23:55 Globulin 2.4 gm/dL 04/10/18 23:55 Albumin/Globulin Ratio 1.6 (1.0-1.8) 04/10/18 23:55 Urine Source CLEAN C 04/10/18 23:45 Urine Color OTHER 04/10/18 23:45 Urine Clarity CLEAR (CLEAR) 04/10/18 23:45 Urine pH 7.0 (4.6 - 8.0) 04/10/18 23:45 Ur Specific [place] <= 1.005 (1.005-1.030) 04/10/18 23:45 Urine Protein NEGATIVE mg/dL (NEGATIVE) 04/10/18 23:45 Urine Glucose (UA) NEGATIVE mg/dL (NEGATIVE) 04/10/18 23:45 Urine Ketones NEGATIVE mg/dL (NEGATIVE) 04/10/18 23:45 Urine Blood TRACE (NEGATIVE) 04/10/18 23:45 Urine Nitrate NEGATIVE (NEGATIVE) 04/10/18 23:45 Urine Bilirubin NEGATIVE (NEGATIVE) 04/10/18 23:45 Urine Urobilinogen 0.2 E.U./dL (0.2 - 1.0) 04/10/18 23:45 Ur Leukocyte Esterase NEGATIVE (NEGATIVE) 04/10/18 23:45 Urine RBC 0-2 /hpf (0-5) H 04/10/18 23:45 Urine WBC 0-2 /hpf (0-5) 04/10/18 23:45 Ur Epithelial Cells OCCASIONAL /lpf (FEW) 04/10/18 23:45 Urine Bacteria OCCASIONAL /hpf (NONE SEEN) 04/10/18 23:45 - Physical Exam Vitals and I&O: Vital Signs Temp 98 F 04/15/18 20:25 Pulse 69 04/15/18 20:25 Resp 18 04/15/18 20:25 BP 121/67 04/15/18 20:25 Pulse Ox 95 04/15/18 20:25 Intake & Output 04/15/18 04/15/18 04/16/18 06:59 18:59 06:59 Intake Total 1400 240 Balance 1400 240 Intake: Oral 1400 240 Other: # Voids 4 2 Active Medications: Current Medications Acetaminophen (Tylenol) 650 mg PO Q4HR PRN PRN Reason: Mild Pain / Temp above 100 Stop: 06/10/18 02:13 Al Hydrox/Mg Hydrox/Simethicone (Maalox) 30 ml PO Q4HR PRN PRN Reason: GI DISTRESS Stop: 06/10/18 02:13 Fluphenazine HCl (Prolixin) 5 mg PO Q12HR [facility] Stop: 06/10/18 08:59 Last Admin: 04/15/18 09:39 Dose: 5 mg Galantamine Hydrobromide (Razadyne) 8 mg PO Q12HR [facility] Stop: 06/10/18 08:59 Last Admin: 04/15/18 09:39 Dose: 8 mg Lorazepam (Ativan) 0.5 mg PO Q4HR PRN; Protocol PRN Reason: Anxiety/agitation Stop: 05/11/18 02:13 Magnesium Hydroxide (Milk Of Magnesia) 30 ml PO Q8HR PRN PRN Reason: Constipation Stop: 06/10/18 21:37 Multivitamins/Vitamin C (Theragran) 1 tab PO DAILY [facility] Stop: 06/10/18 08:59 Last Admin: 04/15/18 09:39 Dose: 1 tab Sodium Chloride (Nacl Tab) 1 gm PO BID [facility] Stop: 06/10/18 08:59 Last Admin: 04/15/18 17:48 Dose: 1 gm Zolpidem Tartrate (Ambien) 5 mg PO HS PRN PRN Reason: Insomnia Stop: 06/10/18 02:13 Last Admin: 04/14/18 21:46 Dose: 5 mg General: alert HEENT: NC/AT, PERRLA, EOMI, anicteric sclerae, throat clear Neck: Supple, No JVD, No thyromegaly, +2 carotid pulse wo bruit Cardiovascular: RRR, Normal S1, Normal S2, without murmur Abdomen: soft, non-tender, non-distended Extremities: clear Neurological: no change Internal Medicine Assmt/Plan - Assessment Assessment: 1.ANEMIA. 2.HYPONATREMIA. 3.CONSTIPATION. 4.PSYCHOSIS - Plan Plan: CONTINUE ON CURRENT MEDICATION AND DIET.
[2018-04-16] MEDS: Multivitamin Tab PO SCH (08:50)
--- NOTE | 2018-04-16 17:10 | Internal Medicine Prog Note ---
Internal Medicine Subjective - Subjective Service Date: 04/16/18 Patient seen and examined:: without staff Patient is:: awake, verbal, confused Per staff patient has:: no adverse event Internal Medicine Objective - Results Result Diagrams: 04/10/18 23:55 04/10/18 23:55 Recent Labs: Laboratory Last Values WBC 6.5 Th/cmm (4.8-10.8) 04/10/18 23:55 RBC 3.80 Mil/cmm (4.30-5.70) L 04/10/18 23:55 Hgb 11.4 gm/dL (12-16) L 04/10/18 23:55 Hct 34.0 % (41.0-60) L 04/10/18 23:55 MCV 89.4 fl (80-99) 04/10/18 23:55 MCH 29.9 pg (26.0-30.0) 04/10/18 23:55 MCHC Differential 33.5 pg (28.0-36.0) 04/10/18 23:55 RDW 14.7 % (11.5-20.0) 04/10/18 23:55 Plt Count 371 Th/cmm (150-400) 04/10/18 23:55 MPV 6.0 fl 04/10/18 23:55 Neutrophils % 43.4 % (40.0-80.0) 04/10/18 23:55 Lymphocytes % 42.9 % (20.0-50.0) 04/10/18 23:55 Monocytes % 10.8 % (2.0-10.0) H 04/10/18 23:55 Eosinophils % 1.9 % (0.0-5.0) 04/10/18 23:55 Basophils % 1.0 % (0.0-2.0) 04/10/18 23:55 Sodium 132 mEq/L (136-145) L 04/10/18 23:55 Potassium 3.5 mEq/L (3.5-5.1) 04/10/18 23:55 Chloride 100 mEq/L (98-107) 04/10/18 23:55 Carbon Dioxide 26.6 mEq/L (21.0-31.0) 04/10/18 23:55 Anion Gap 8.9 (7.0-16.0) 04/10/18 23:55 BUN 11 mg/dL (7-25) 04/10/18 23:55 Creatinine 0.8 mg/dL (0.7-1.3) 07 23:55 Est GFR ( Amer) > 60.0 ml/min (>90) 04/10/18 23:55 Est GFR (Non-Af Amer) > 60.0 ml/min 04/10/18 23:55 BUN/Creatinine Ratio 13.8 04/10/18 23:55 Glucose 94 mg/dL (70-105) 04/10/18 23:55 Calcium 9.2 mg/dL (8.6-10.3) 04/10/18 23:55 Total Bilirubin 0.2 mg/dL (0.3-1.0) L 04/10/18 23:55 AST 14 U/L (13-39) 04/10/18 23:55 ALT 11 U/L (7-52) 04/10/18 23:55 Alkaline Phosphatase 72 U/L (34-104) 04/10/18 23:55 Total Protein 6.2 gm/dL (6.0-8.3) 04/10/18 23:55 Albumin 3.8 gm/dL (4.2-5.5) L 04/10/18 23:55 Globulin 2.4 gm/dL 04/10/18 23:55 Albumin/Globulin Ratio 1.6 (1.0-1.8) 04/10/18 23:55 Urine Source CLEAN C 04/10/18 23:45 Urine Color OTHER 04/10/18 23:45 Urine Clarity CLEAR (CLEAR) 04/10/18 23:45 Urine pH 7.0 (4.6 - 8.0) 04/10/18 23:45 Ur Specific [place] <= 1.005 (1.005-1.030) 04/10/18 23:45 Urine Protein NEGATIVE mg/dL (NEGATIVE) 04/10/18 23:45 Urine Glucose (UA) NEGATIVE mg/dL (NEGATIVE) 04/10/18 23:45 Urine Ketones NEGATIVE mg/dL (NEGATIVE) 04/10/18 23:45 Urine Blood TRACE (NEGATIVE) 04/10/18 23:45 Urine Nitrate NEGATIVE (NEGATIVE) 04/10/18 23:45 Urine Bilirubin NEGATIVE (NEGATIVE) 04/10/18 23:45 Urine Urobilinogen 0.2 E.U./dL (0.2 - 1.0) 04/10/18 23:45 Ur Leukocyte Esterase NEGATIVE (NEGATIVE) 04/10/18 23:45 Urine RBC 0-2 /hpf (0-5) H 04/10/18 23:45 Urine WBC 0-2 /hpf (0-5) 04/10/18 23:45 Ur Epithelial Cells OCCASIONAL /lpf (FEW) 04/10/18 23:45 Urine Bacteria OCCASIONAL /hpf (NONE SEEN) 04/10/18 23:45 - Physical Exam Vitals and I&O: Vital Signs Temp 97.6 F 04/16/18 14:00 Pulse 79 04/16/18 14:00 Resp 18 04/16/18 14:00 BP 90/59 04/16/18 14:00 Pulse Ox 98 04/16/18 14:00 Intake & Output 04/15/18 04/16/18 04/16/18 18:59 06:59 18:59 Intake Total 1400 480 Balance 1400 480 Intake: Oral 1400 480 Other: # Voids 4 2 Active Medications: Current Medications Acetaminophen (Tylenol) 650 mg PO Q4HR PRN PRN Reason: Mild Pain / Temp above 100 Stop: 06/10/18 02:13 Al Hydrox/Mg Hydrox/Simethicone (Maalox) 30 ml PO Q4HR PRN PRN Reason: GI DISTRESS Stop: 06/10/18 02:13 Fluphenazine HCl (Prolixin) 5 mg PO Q12HR [facility] Stop: 06/10/18 08:59 Last Admin: 04/16/18 08:50 Dose: 5 mg Galantamine Hydrobromide (Razadyne) 8 mg PO Q12HR [facility] Stop: 06/10/18 08:59 Last Admin: 04/16/18 08:54 Dose: 8 mg Lorazepam (Ativan) 0.5 mg PO Q4HR PRN; Protocol PRN Reason: Anxiety/agitation Stop: 05/11/18 02:13 Magnesium Hydroxide (Milk Of Magnesia) 30 ml PO Q8HR PRN PRN Reason: Constipation Stop: 06/10/18 21:37 Multivitamins/Vitamin C (Theragran) 1 tab PO DAILY [facility] Stop: 06/10/18 08:59 Last Admin: 04/16/18 08:50 Dose: 1 tab Sodium Chloride (Nacl Tab) 1 gm PO BID [facility] Stop: 06/10/18 08:59 Last Admin: 04/16/18 08:50 Dose: 1 gm Zolpidem Tartrate (Ambien) 5 mg PO HS PRN PRN Reason: Insomnia Stop: 06/10/18 02:13 Last Admin: 04/15/18 21:11 Dose: 5 mg General: alert HEENT: NC/AT, PERRLA, EOMI, anicteric sclerae, throat clear Neck: Supple, No JVD, No thyromegaly, +2 carotid pulse wo bruit Cardiovascular: RRR, Normal S1, Normal S2, without murmur Abdomen: soft, non-tender, non-distended Extremities: clear Neurological: no change Internal Medicine Assmt/Plan - Assessment Assessment: 1.ANEMIA. 2.HYPONATREMIA. 3.CONSTIPATION. 4.PSYCHOSIS - Plan Plan: CONTINUE ON CURRENT MEDICATION AND DIET.CBC AND CMP IN AM
--- NOTE | 2018-04-17 02:52 | Progress Notes ---
DATE: 04/16/2018 Chart reviewed and the patient interviewed. Also discussed the patient's condition with the staff and reviewed records and labs. The patient is still pacing up and down the unit. The patient also is still restless and is still in irritable mood and he wants to be left alone. The patient also is depressed and anxious and angry. He also had difficulty expressing himself and expressing his feelings. Otherwise, the patient is compliant with taking medications with no side effects of medications. ASSESSMENT: The patient is still irritable and unpredictable behavior. TREATMENT PLAN: Continue to monitor his behavior and continue to follow up. JOB# [id number]
[2018-04-17 08:26] LABS: % BASOPHILS 1.7 % (0.0-2.0); % EOSINOPHILS 1.2 % (0.0-5.0); % LYMPHOCYTES 29.1 % (20.0-50.0); % MONOCYTES 6.5 % (2.0-10.0); % NEUTROPHILS 61.5 % (40.0-80.0); BASOPHILE ABSOLUTE 0.1 Th/cumm (0-0.2); EOSINOPHILE ABSOLUTE 0.1 Th/cmm (0.1-0.4); HEMOGLOBIN 13.2 gm/dL (12-16); MEAN CORPUSCULAR HEMOGLOBIN 30.2 pg (26.0-30.0); MEAN CORPUSCULAR HGB CONC 33.9 pg (28.0-36.0); MEAN PLATELET VOLUME 6.3 fl; MONOCYTE ABSOLUTE 0.5 Th/cmm (0.3-1.0); NEUTROPHILE ABSOLUTE 4.3 Th/cmm (1.8-8.0); PLATELET COUNT 370 Th/cmm (150-400); RED BLOOD COUNT 4.38 Mil/cmm (4.30-5.70); RED CELL DISTRIBUTION WIDTH 14.6 % (11.5-20.0)
[2018-04-17 08:42] LABS: ALB/GLOB RATIO 1.5 (1.0-1.8); ALBUMIN 4.3 gm/dL (4.2-5.5); ALKALINE PHOSPHATASE 84 U/L (34-104); BILIRUBIN,TOTAL 0.4 mg/dL (0.3-1.0); BUN - UREA NITROGEN 14 mg/dL (7-25); CALCIUM SERUM 9.5 mg/dL (8.6-10.3); CARBON DIOXIDE 28.7 mEq/L (21.0-31.0); CHLORIDE 97 mEq/L (98-107); CREATININE - SERUM 0.8 mg/dL (0.7-1.3); GFR AFRICAN-AMERICAN > 60.0 ml/min (>90); GFR NON AFRICAN-AMERICAN > 60.0 ml/min; GLUCOSE 136 mg/dL (70-105); POTASSIUM SERUM 3.7 mEq/L (3.5-5.1); SGOT 17 U/L (13-39); SGPT/ALT 14 U/L (7-52); SODIUM SERUM 132 mEq/L (136-145); TOTAL PROTEIN,SERUM 7.1 gm/dL (6.0-8.3)
[2018-04-17] MEDS: Multivitamin Tab PO SCH (09:17)
--- NOTE | 2018-04-17 20:55 | Internal Medicine Prog Note ---
Internal Medicine Subjective - Subjective Service Date: 04/17/18 Patient seen and examined:: with staff Patient is:: awake, verbal, confused Per staff patient has:: no adverse event Internal Medicine Objective - Results Result Diagrams: 04/17/18 08:15 04/17/18 08:15 Recent Labs: Laboratory Last Values WBC 7.0 Th/cmm (4.8-10.8) 04/17/18 08:15 RBC 4.38 Mil/cmm (4.30-5.70) 04/17/18 08:15 Hgb 13.2 gm/dL (12-16) 04/17/18 08:15 Hct 39.0 % (41.0-60) L 04/17/18 08:15 MCV 89.0 fl (80-99) 04/17/18 08:15 MCH 30.2 pg (26.0-30.0) H 04/17/18 08:15 MCHC Differential 33.9 pg (28.0-36.0) 04/17/18 08:15 RDW 14.6 % (11.5-20.0) 04/17/18 08:15 Plt Count 370 Th/cmm (150-400) 04/17/18 08:15 MPV 6.3 fl 04/17/18 08:15 Neutrophils % 61.5 % (40.0-80.0) 04/17/18 08:15 Lymphocytes % 29.1 % (20.0-50.0) 04/17/18 08:15 Monocytes % 6.5 % (2.0-10.0) 04/17/18 08:15 Eosinophils % 1.2 % (0.0-5.0) 04/17/18 08:15 Basophils % 1.7 % (0.0-2.0) 04/17/18 08:15 Sodium 132 mEq/L (136-145) L 04/17/18 08:15 Potassium 3.7 mEq/L (3.5-5.1) 04/17/18 08:15 Chloride 97 mEq/L (98-107) L 04/17/18 08:15 Carbon Dioxide 28.7 mEq/L (21.0-31.0) 04/17/18 08:15 Anion Gap 10.0 (7.0-16.0) 04/17/18 08:15 BUN 14 mg/dL (7-25) 04/17/18 08:15 Creatinine 0.8 mg/dL (0.7-1.3) 04/17/18 08:15 Est GFR ( Amer) > 60.0 ml/min (>90) 04/17/18 08:15 Est GFR (Non-Af Amer) > 60.0 ml/min 04/17/18 08:15 BUN/Creatinine Ratio 17.5 04/17/18 08:15 Glucose 136 mg/dL (70-105) H 04/17/18 08:15 Calcium 9.5 mg/dL (8.6-10.3) 04/17/18 08:15 Total Bilirubin 0.4 mg/dL (0.3-1.0) 04/17/18 08:15 AST 17 U/L (13-39) 04/17/18 08:15 ALT 14 U/L (7-52) 04/17/18 08:15 Alkaline Phosphatase 84 U/L (34-104) 04/17/18 08:15 Total Protein 7.1 gm/dL (6.0-8.3) 04/17/18 08:15 Albumin 4.3 gm/dL (4.2-5.5) 04/17/18 08:15 Globulin 2.8 gm/dL 04/17/18 08:15 Albumin/Globulin Ratio 1.5 (1.0-1.8) 04/17/18 08:15 Urine Source CLEAN C 04/10/18 23:45 Urine Color OTHER 04/10/18 23:45 Urine Clarity CLEAR (CLEAR) 04/10/18 23:45 Urine pH 7.0 (4.6 - 8.0) 04/10/18 23:45 Ur Specific [place] <= 1.005 (1.005-1.030) 04/10/18 23:45 Urine Protein NEGATIVE mg/dL (NEGATIVE) 04/10/18 23:45 Urine Glucose (UA) NEGATIVE mg/dL (NEGATIVE) 04/10/18 23:45 Urine Ketones NEGATIVE mg/dL (NEGATIVE) 04/10/18 23:45 Urine Blood TRACE (NEGATIVE) 04/10/18 23:45 Urine Nitrate NEGATIVE (NEGATIVE) 04/10/18 23:45 Urine Bilirubin NEGATIVE (NEGATIVE) 04/10/18 23:45 Urine Urobilinogen 0.2 E.U./dL (0.2 - 1.0) 04/10/18 23:45 Ur Leukocyte Esterase NEGATIVE (NEGATIVE) 04/10/18 23:45 Urine RBC 0-2 /hpf (0-5) H 04/10/18 23:45 Urine WBC 0-2 /hpf (0-5) 04/10/18 23:45 Ur Epithelial Cells OCCASIONAL /lpf (FEW) 04/10/18 23:45 Urine Bacteria OCCASIONAL /hpf (NONE SEEN) 04/10/18 23:45 - Physical Exam Vitals and I&O: Vital Signs Temp 98.2 F 04/17/18 20:00 Pulse 63 04/17/18 20:00 Resp 16 04/17/18 20:00 BP 99/65 04/17/18 20:00 Pulse Ox 96 04/17/18 20:00 Intake & Output 04/17/18 04/17/18 04/18/18 06:59 18:59 06:59 Intake Total 240 Balance 240 Intake: Oral 240 Other: # Voids 2 Active Medications: Current Medications Acetaminophen (Tylenol) 650 mg PO Q4HR PRN PRN Reason: Mild Pain / Temp above 100 Stop: 06/10/18 02:13 Al Hydrox/Mg Hydrox/Simethicone (Maalox) 30 ml PO Q4HR PRN PRN Reason: GI DISTRESS Stop: 06/10/18 02:13 Fluphenazine HCl (Prolixin) 10 mg PO Q12HR [facility] Stop: 06/16/18 08:59 Last Admin: 04/17/18 09:17 Dose: 10 mg Galantamine Hydrobromide (Razadyne) 8 mg PO Q12HR [facility] Stop: 06/10/18 08:59 Last Admin: 04/17/18 09:17 Dose: 8 mg Lorazepam (Ativan) 0.5 mg PO Q4HR PRN; Protocol PRN Reason: Anxiety/agitation Stop: 05/11/18 02:13 Last Admin: 04/17/18 13:40 Dose: 0.5 mg Magnesium Hydroxide (Milk Of Magnesia) 30 ml PO Q8HR PRN PRN Reason: Constipation Stop: 06/10/18 21:37 Multivitamins/Vitamin C (Theragran) 1 tab PO DAILY [facility] Stop: 06/10/18 08:59 Last Admin: 04/17/18 09:17 Dose: 1 tab Sodium Chloride (Nacl Tab) 1 gm PO BID [facility] Stop: 06/10/18 08:59 Last Admin: 04/17/18 17:11 Dose: 1 gm Zolpidem Tartrate (Ambien) 5 mg PO HS PRN PRN Reason: Insomnia Stop: 06/10/18 02:13 Last Admin: 04/16/18 21:34 Dose: 5 mg General: alert HEENT: NC/AT, PERRLA, EOMI, anicteric sclerae, throat clear Neck: Supple, No JVD, No thyromegaly, +2 carotid pulse wo bruit Cardiovascular: RRR, Normal S1, Normal S2, without murmur Abdomen: soft, non-tender, non-distended Extremities: clear Neurological: no change Internal Medicine Assmt/Plan - Assessment Assessment: 1.ANEMIA. 2.HYPONATREMIA. 3.CONSTIPATION. 4.PSYCHOSIS - Plan Plan: CONTINUE ON CURRENT MEDICATION AND DIET. Nutritional Asmnt/Malnutr-PDOC - Dietary Evaluation Malnutrition Findings (Please click <Entered> for more info): Nutritional Asmnt/Malnutrition Start: 04/17/18 15: 18 Text: Status: Complete Freq: Protocol: Document 04/17/18 15:18 LCHENG (Rec: 04/17/18 15:32 [email or web address] [email or web address]) Nutritional Asmnt/Malnutrition Patient General Information Nutritional Screening Low Risk Diagnosis psychosis Pertinent Medical Hx/Surgical Hx psychosis Subjective Information pt seen walking in hallway at time of visit. Pt stated good appetite. Per EMR, PO intake 100% of meals. Current Diet Order/ Nutrition Support regular Pertinent Medications theragran Pertinent Labs 04/17 Na 132, Cl 97, glucose 136 04/10 Na 132, glucose 94 Nutritional Hx/Data Height 1.63 m Height (Calculated Centimeters) 162.6 Current Weight (lbs) 68.039 kg Weight (Calculated Kilograms) 68.0 Weight (Calculated Grams) 46239.9 [place] Body Weight 130 Body Mass Index (BMI) 25.7 Weight Status Overweight GI Symptoms GI Symptoms None Last BM none Difficult in: None Skin Integrity/Comment: chanel score 21 Current %PO Good (75-100%) Estimated Nutritional Goals BEE in Kcals: Using Current wt Calories/Kcals/Kg 23-27 Kcals Calculated 8916-7432 Protein: Using Current wt Protein g/k.8 Protein Calculated 54-68 Fluid: ml 1564-1836ml (1ml/kcal) Nutritional Problem No current Nutrition Prob Problem N/A Malnutrition Alert Is there a minimum of two criteria No selected? Query Text:Check all the applicable criteria. A minimum of two criteria are recommended for diagnosis of either severe or non-severe malnutrition. Malnutrition Related to Morbid Obesity Malnutrition related to morbid obesity No Intervention/Recommendation Comments 1. Continue with regular diet as ordered. Monitor glucose level. 2. Monitor PO intake, wt, labs and skin integrity 3. F/U as low risk in 7 days, 04/24 Expected Outcomes/Goals Expected Outcomes/Goals 1. PO intake to meet at least 75% of nutritional needs. 2. Wt stability, skin to remain intact, labs to approach WNL.
--- NOTE | 2018-04-17 23:25 | Progress Notes ---
DATE: 04/17/2018 SUBJECTIVE: Chart reviewed and the patient interviewed. Also, discussed the patient's condition with the staff and reviewed records and labs. The patient is still agitated and is still intrusive. The patient have multiple questions and repeating the same questions over and over and intrusive to others. The patient also is still suspicious and paranoid and have difficulty following directions. Otherwise, the patient is compliant with taking his medications with no side effects of medications. ASSESSMENT: The patient is still psychotic and agitated. TREATMENT PLAN: Continue to monitor behavior. Also, we will increase Prolixin to 10 mg twice a day and we will continue to follow up. JOB# [id number]
[2018-04-18] MEDS: Multivitamin Tab PO SCH (09:20)
--- NOTE | 2018-04-18 20:03 | Discharge Summary ---
DATE OF DISCHARGE: 04/18/2018 AGE: 58 SEX: Male. 1PHYSICIAN: Dr. Fischer. FINAL DIAGNOSIS AND PRIMARY DIAGNOSIS: Schizoaffective disorder, , with psychotic features. REASON FOR HOSPITALIZATION: The patient was admitted to the hospital because of increased agitation and irritability and because of mood swings. HOSPITAL COURSE: The patient continued to be extremely agitated and in irritable moods. The patient also was angry. The patient was restarted on psychotropic medications. Gradually, the patient's affect was brighter. The patient was less agitated and less irritable. Also, was cooperative and compliant with taking his medications. The patient was accepted back to [place] and the patient was discharged there. Physical exam of the patient was basically with no major medical problems. AFTER DISCHARGE PLANS: The patient discharged from the hospital and went to live in [facility] with plans for followup there. EXPECTED OUTCOME AFTER DISCHARGE: Fair if the patient continued to follow up with his psychotropic medications and with discharge plans. JOB# [id number]
--- NOTE | 2018-04-18 22:11 | Internal Medicine Prog Note ---
Internal Medicine Subjective - Subjective Service Date: 04/18/18 Patient seen and examined:: with staff Patient is:: awake, verbal, confused Per staff patient has:: no adverse event Internal Medicine Objective - Results Result Diagrams: 04/17/18 08:15 04/17/18 08:15 Recent Labs: Laboratory Last Values WBC 7.0 Th/cmm (4.8-10.8) 04/17/18 08:15 RBC 4.38 Mil/cmm (4.30-5.70) 04/17/18 08:15 Hgb 13.2 gm/dL (12-16) 04/17/18 08:15 Hct 39.0 % (41.0-60) L 04/17/18 08:15 MCV 89.0 fl (80-99) 04/17/18 08:15 MCH 30.2 pg (26.0-30.0) H 04/17/18 08:15 MCHC Differential 33.9 pg (28.0-36.0) 04/17/18 08:15 RDW 14.6 % (11.5-20.0) 04/17/18 08:15 Plt Count 370 Th/cmm (150-400) 04/17/18 08:15 MPV 6.3 fl 04/17/18 08:15 Neutrophils % 61.5 % (40.0-80.0) 04/17/18 08:15 Lymphocytes % 29.1 % (20.0-50.0) 04/17/18 08:15 Monocytes % 6.5 % (2.0-10.0) 04/17/18 08:15 Eosinophils % 1.2 % (0.0-5.0) 04/17/18 08:15 Basophils % 1.7 % (0.0-2.0) 04/17/18 08:15 Sodium 132 mEq/L (136-145) L 04/17/18 08:15 Potassium 3.7 mEq/L (3.5-5.1) 04/17/18 08:15 Chloride 97 mEq/L (98-107) L 04/17/18 08:15 Carbon Dioxide 28.7 mEq/L (21.0-31.0) 04/17/18 08:15 Anion Gap 10.0 (7.0-16.0) 04/17/18 08:15 BUN 14 mg/dL (7-25) 04/17/18 08:15 Creatinine 0.8 mg/dL (0.7-1.3) 04/17/18 08:15 Est GFR ( Amer) > 60.0 ml/min (>90) 04/17/18 08:15 Est GFR (Non-Af Amer) > 60.0 ml/min 04/17/18 08:15 BUN/Creatinine Ratio 17.5 04/17/18 08:15 Glucose 136 mg/dL (70-105) H 04/17/18 08:15 Calcium 9.5 mg/dL (8.6-10.3) 04/17/18 08:15 Total Bilirubin 0.4 mg/dL (0.3-1.0) 04/17/18 08:15 AST 17 U/L (13-39) 04/17/18 08:15 ALT 14 U/L (7-52) 04/17/18 08:15 Alkaline Phosphatase 84 U/L (34-104) 04/17/18 08:15 Total Protein 7.1 gm/dL (6.0-8.3) 04/17/18 08:15 Albumin 4.3 gm/dL (4.2-5.5) 04/17/18 08:15 Globulin 2.8 gm/dL 04/17/18 08:15 Albumin/Globulin Ratio 1.5 (1.0-1.8) 04/17/18 08:15 Urine Source CLEAN C 04/10/18 23:45 Urine Color OTHER 04/10/18 23:45 Urine Clarity CLEAR (CLEAR) 04/10/18 23:45 Urine pH 7.0 (4.6 - 8.0) 04/10/18 23:45 Ur Specific [place] <= 1.005 (1.005-1.030) 04/10/18 23:45 Urine Protein NEGATIVE mg/dL (NEGATIVE) 04/10/18 23:45 Urine Glucose (UA) NEGATIVE mg/dL (NEGATIVE) 04/10/18 23:45 Urine Ketones NEGATIVE mg/dL (NEGATIVE) 04/10/18 23:45 Urine Blood TRACE (NEGATIVE) 04/10/18 23:45 Urine Nitrate NEGATIVE (NEGATIVE) 04/10/18 23:45 Urine Bilirubin NEGATIVE (NEGATIVE) 04/10/18 23:45 Urine Urobilinogen 0.2 E.U./dL (0.2 - 1.0) 04/10/18 23:45 Ur Leukocyte Esterase NEGATIVE (NEGATIVE) 04/10/18 23:45 Urine RBC 0-2 /hpf (0-5) H 04/10/18 23:45 Urine WBC 0-2 /hpf (0-5) 04/10/18 23:45 Ur Epithelial Cells OCCASIONAL /lpf (FEW) 04/10/18 23:45 Urine Bacteria OCCASIONAL /hpf (NONE SEEN) 04/10/18 23:45 - Physical Exam Vitals and I&O: Vital Signs Temp 97.7 F 04/18/18 16:20 Pulse 84 04/18/18 16:20 Resp 20 04/18/18 16:20 BP 128/68 04/18/18 16:20 Pulse Ox 95 04/18/18 16:20 Active Medications: Current Medications Acetaminophen (Tylenol) 650 mg PO Q4HR PRN PRN Reason: Mild Pain / Temp above 100 Stop: 06/10/18 02:13 Al Hydrox/Mg Hydrox/Simethicone (Maalox) 30 ml PO Q4HR PRN PRN Reason: GI DISTRESS Stop: 06/10/18 02:13 Fluphenazine HCl (Prolixin) 10 mg PO Q12HR [facility] Stop: 06/16/18 08:59 Last Admin: 04/18/18 21:03 Dose: 10 mg Galantamine Hydrobromide (Razadyne) 8 mg PO Q12HR SHANELLE Stop: 06/10/18 08:59 Last Admin: 04/18/18 21:03 Dose: 8 mg Lorazepam (Ativan) 0.5 mg PO Q4HR PRN; Protocol PRN Reason: Anxiety/agitation Stop: 05/11/18 02:13 Last Admin: 04/18/18 16:14 Dose: 0.5 mg Magnesium Hydroxide (Milk Of Magnesia) 30 ml PO Q8HR PRN PRN Reason: Constipation Stop: 06/10/18 21:37 Multivitamins/Vitamin C (Theragran) 1 tab PO DAILY SHANELLE Stop: 06/10/18 08:59 Last Admin: 04/18/18 09:20 Dose: 1 tab Sodium Chloride (Nacl Tab) 1 gm PO BID SHANELLE Stop: 06/10/18 08:59 Last Admin: 04/18/18 16:14 Dose: 1 gm Zolpidem Tartrate (Ambien) 5 mg PO HS PRN PRN Reason: Insomnia Stop: 06/10/18 02:13 Last Admin: 04/16/18 21:34 Dose: 5 mg General: alert HEENT: NC/AT, PERRLA, EOMI, anicteric sclerae, throat clear Neck: Supple, No JVD, No thyromegaly, +2 carotid pulse wo bruit Cardiovascular: RRR, Normal S1, Normal S2, without murmur Abdomen: soft, non-tender, non-distended Extremities: clear Neurological: no change Internal Medicine Assmt/Plan - Assessment Assessment: 1.ANEMIA. 2.HYPONATREMIA. 3.CONSTIPATION. 4.PSYCHOSIS - Plan Plan: CONTINUE ON CURRENT MEDICATION AND DIET. Nutritional Asmnt/Malnutr-PDOC - Dietary Evaluation Malnutrition Findings (Please click <Entered> for more info): Nutritional Asmnt/Malnutrition Start: 04/17/18 15: 18 Text: Status: Complete Freq: Protocol: Document 04/17/18 15:18 LCHENG (Rec: 04/17/18 15:32 LCHENG [email or web address]) Nutritional Asmnt/Malnutrition Patient General Information Nutritional Screening Low Risk Diagnosis psychosis Pertinent Medical Hx/Surgical Hx psychosis Subjective Information pt seen walking in hallway at time of visit. Pt stated good appetite. Per EMR, PO intake 100% of meals. Current Diet Order/ Nutrition Support regular Pertinent Medications theragran Pertinent Labs 04/17 Na 132, Cl 97, glucose 136 7/9 Na 132, glucose 94 Nutritional Hx/Data Height 1.63 m Height (Calculated Centimeters) 162.6 Current Weight (lbs) 68.039 kg Weight (Calculated Kilograms) 68.0 Weight (Calculated Grams) 53087.9 [place] Body Weight 130 Body Mass Index (BMI) 25.7 Weight Status Overweight GI Symptoms GI Symptoms None Last BM none Difficult in: None Skin Integrity/Comment: chanel score 21 Current %PO Good (75-100%) Estimated Nutritional Goals BEE in Kcals: Using Current wt Calories/Kcals/Kg 23-27 Kcals Calculated 3406-0258 Protein: Using Current wt Protein g/k.8 Protein Calculated 54-68 Fluid: ml 1564-1836ml (1ml/kcal) Nutritional Problem No current Nutrition Prob Problem N/A Malnutrition Alert Is there a minimum of two criteria No selected? Query Text:Check all the applicable criteria. A minimum of two criteria are recommended for diagnosis of either severe or non-severe malnutrition. Malnutrition Related to Morbid Obesity Malnutrition related to morbid obesity No Intervention/Recommendation Comments 1. Continue with regular diet as ordered. Monitor glucose level. 2. Monitor PO intake, wt, labs and skin integrity 3. F/U as low risk in 7 days, 04/24 Expected Outcomes/Goals Expected Outcomes/Goals 1. PO intake to meet at least 75% of nutritional needs. 2. Wt stability, skin to remain intact, labs to approach WNL.
--- NOTE | 2018-04-19 01:38 | Progress Notes ---
DATE: 04/18/2018 SUBJECTIVE: Chart reviewed and the patient interviewed. Also discussed the patient's condition with the staff and reviewed records and labs. The patient is still anxious. There is also report of irritability and agitation. Also, still needs lots of redirections. Otherwise, the patient is compliant with taking his medications with no side effect of medications. ASSESSMENT: The patient is psychotic, but is improving. TREATMENT PLAN: Continue to monitor his behavior. Also, continue to work on his discharge plans. Plan is to discharge the patient today if the patient accepted with placement, otherwise will be discharged tomorrow. JOB# [id number]
[2018-04-19] MEDS: Multivitamin Tab PO SCH (08:38)
== END 2018-04-19 16:55 | DRG 885 ==
LOC: ER 22:17 → GERO2 04-11 01:10
PROVIDERS: ADMIT Psychiatry & Neurology Psychiatry; ATTEND Psychiatry & Neurology Psychiatry
DX: F25.9 Schizoaffective disorder, unspecified (principal); E87.1 Hypo-osmolality and hyponatremia; D64.9 Anemia, unspecified; K59.00 Constipation, unspecified; F29 Unspecified psychosis not due to a substance or known physiological condition
CPT/HCPCS: 36415-UA; 80053-TC; 81001-TC; 81003-TC; 85025-TC; 93005